=== PATIENT | female | born 1990 | race Caucasian/White ===

== ENCOUNTER 2025-03-06 12:38 | Emergency (ER) | payer OTHER ==
[~2025-03-06] VITALS: Ht 167.6 cm; Wt 127.0 kg
[2025-03-06] MEDS ORDERED: Tdap Vaccine 0.5 ML SYR (Adult Vaccine) IM ONE (13:35)
[2025-03-06] MEDS ORDERED: Lidocaine Hydrochloride 2% 10 ML AMP SC ONE (13:55)
[2025-03-06] MEDS ORDERED: Bacitracin Zinc 14 GM TUBE T ONE (13:55)
[2025-03-06] MEDS ORDERED: CEPHALEXIN 500 MG CAP PO ONE (15:15)
[2025-03-06] MEDS ORDERED: CEPHALEXIN500 M1 PO (15:17)
== END 2025-03-06 15:41 | disposition home or self-care (01) ==
LOC: ED 12:38
DX: S61.217A Laceration without foreign body of left little finger without damage to nail, initial encounter (principal); W26.0XXA Contact with knife, initial encounter; Y93.89 Activity, other specified; Y92.89 Other specified places as the place of occurrence of the external cause; Y99.8 Other external cause status

== ENCOUNTER 2025-04-23 03:41 | Emergency (ER) | payer OTHER ==
[~2025-04-23 03:41] MED LIST: CEPHALEXIN500 M1 PO
[2025-04-23] MEDS ORDERED: SODIUM CHLORIDE 0.9% 1,000 ML IV ONE (04:45)
[2025-04-23] MEDS ORDERED: Ondansetron Hydrochloride 4 MG/2 ML VIAL IV ONE (04:50)
[2025-04-23 05:23] LABS: BILIRUBIN Negative (Negative); BLOOD Negative (Negative); CLARITY Cloudy (Clear); COLOR Yellow (Yellow); KETONE Trace (Negative); LEUKO ESTERASE 1+ (Negative); NITRITE Negative (Negative); PH 6.5 (4.5-8.0); SPECIFIC GRAVITY >= 1.030 (1.001-1.030); UROBILINOGEN 1.0 E.U./dl (0.0-1.0)
[2025-04-23 05:40] LABS: BACTERIA TRACE; EPITHELIAL CELLS 21-30; WBC 16-20 wbc/hpf (0-5)
[2025-04-23 05:59] LABS: BUN 8 mg/dl (9-23); SGPT/ALT 16 U/L (5-49)
[2025-04-23 06:08] LABS: BASO # 0.0 10*3/uL (0.0-0.1); BASO % 0.4 % (0.0-1.0); EOS # 0.1 10*3/uL (0.0-0.4); EOS % 1.1 % (1.0-4.0); MEAN CELL VOLUME 86.8 fl (81.0-99.0); MEAN CORPUSCULAR HGB 28.4 pg (27.0-31.0); MEAN PLATELET VOLUME 9.5 fl (9.6-12.3); MONO # 0.6 10*3/uL (0.1-1.0); MONO % 7.1 % (3.0-9.0); NEUT # 5.6 10*3/uL (2.3-7.9); NEUT % 65.9 % (47.0-73.0); NUCLEATED RED BLOOD CELL 0.0 % (0.0-0.0); NUCLEATED RED BLOOD CELL 0.0 10*3/uL (0.0-0.0); PLATELET COUNT AUTOMATED 214 10*3/uL (130-400); RED CELL DISTRI WIDTH 13.8 % (0-14.5)
[2025-04-23] MEDS ORDERED: Metoclopramide Hydrochloride 10 MG/2 ML VIAL IV ONE (06:25)
[2025-04-23] MEDS ORDERED: LAMICTAL150 MG PO (06:44)
[2025-04-23] MEDS ORDERED: PEPCID20 MG PO (06:44)
[2025-04-23] MEDS ORDERED: ATIVAN1 MG PO (06:44)
[2025-04-23] MEDS ORDERED: TRINTELLIX10 MG PO (06:45)
[2025-04-23] MEDS ORDERED: OZEMPIC1 MG/0.71 SQ (06:46)
[2025-04-23] MEDS ORDERED: ESTRADIOL40 MG/1 ML IM (06:46)
[2025-04-23] MEDS ORDERED: METFORMIN HYDR500 MG PO (06:47)
[2025-04-23] MEDS ORDERED: PRILOSEC20 M1 PO (06:48)
[2025-04-23] MEDS ORDERED: ADDERALL 20 MG20 MG PO ×2 (06:48)
[2025-04-23] MEDS ORDERED: CIALIS20 MG PO (06:48)
[2025-04-23] MEDS ORDERED: ROSUVASTATIN CA20 MG PO (06:49)
[2025-04-23] MEDS ORDERED: MINIPRESS1 M1 PO (06:49)
[2025-04-23] MEDS ORDERED: ABILIFY10 MG PO (06:49)
[2025-04-23] MEDS ORDERED: ATARAX,VISTARIL50 MG PO (06:50)
== END 2025-04-23 09:10 | disposition home or self-care (01) ==
LOC: ED 03:41
PROVIDERS: Emergency Medicine
DX: R10.84 Generalized abdominal pain (principal); K92.1 Melena; Z79.2 Long term (current) use of antibiotics